=== PATIENT | female | born 1965 | race Caucasian/White ===

== ENCOUNTER → 2022-12-30 | Outpatient (CLI) | payer BC ==
--- NOTE | 2023-01-02 08:14 | MM ---
Reason for Exam: Screening (asymptomatic). Patient History: Menarche at age 14. First Full-Term at age 31. Late child-bearing (after 31). Patient used Hormonal Contraceptives for 20 years. Last menstrual period: 12/09/2022 Risk Values: Gwen 5 year model risk: 1.7%. NCI Lifetime model risk: 10.9%. Prior Study Comparison: No prior studies available for comparison. Tissue Density: The breast tissue is heterogeneously dense. This may lower the sensitivity of mammography. Findings: Analyzed By CAD. There is no suspicious group of microcalcifications or new suspicious mass in either breast. Overall Assessment: Negative, BI-RAD 1 Management: Screening Mammogram of both breasts in [address] [facility] will attempt to contact patient to return for supplemental views and ultrasound if indicated. Patient should continue monthly self-breast exams. A clinical breast exam by your physician is recommended on an annual basis. This exam should not preclude additional follow-up of suspicious palpable abnormalities. Note on Gwen scores and lifetime risk: 1. A Gwen score greater than 3% is considered moderate risk. If this is the case, consider specialist referral to assess eligibility for a risk reducing agent. 2. If overall lifetime risk for the development of breast cancer is 20% or higher, the patient may qualify for future screening with alternating mammogram and breast MRI. Electronically signed and approved by: Abimael Vizcarra DO
== END | disposition home or self-care (01) ==
LOC: RADMAMWWP 07:25
PROVIDERS: ATTEND Family Medicine
DX: Z12.31 Encounter for screening mammogram for malignant neoplasm of breast (principal); Z78.0 Asymptomatic menopausal state
CPT/HCPCS: 77067

== ENCOUNTER → 2023-08-25 | Outpatient (CLI) | payer BC | END | disposition home or self-care (01) | LOC: LABWHC1 09:21 | PROVIDERS: ATTEND Internal Medicine Critical Care Medicine | DX: R05.3 Chronic cough (principal); Z77.120 Contact with and (suspected) exposure to mold (toxic) | CPT/HCPCS: 36415; 86001; 86606; 86609 ==